=== PATIENT | female | born 1930 | race Caucasian/White ===

== ENCOUNTER 2017-07-22 00:27 | Inpatient (IN) | payer MEDICARE ==
[~2017-07-22] VITALS: Wt 68.2 kg
[~2017-07-22 00:27] MED LIST: ACCUPRIL10 M1 PO; ACETAMINOPHEN W1 TA6 PO; ACIDOPHILUS PO; AMBIEN 10MG10 MG PO; AMBIEN10 MG PO; BACTRIM DS 8001 TAB PO; CIPRO 500MG TA500 MG PO; CLEOCIN HC150 MG/CAP; COUMADIN 1MG1 MG/TAB PO; COUMADIN 3MG3 MG/TAB PO; COUMADIN1 MG PO; DITROPAN 5MG TAB5 MG PO; DYRENIUM 50MG C50 MG PO; FEROSUL325 MG PO; FERROUS SULFATE65 MG PO; FOLIC ACID 40400 MCG PO; HCTZ/TRIAMTEREN1 TA1 PO; LEVOTHYROXIN0.088 MG PO; LORTAB 7.5/5001 TAB PO; MACROBID 1100 MG/CAP PO; MACRODANTIN100 PO; MAXZIDE 50 MG-71 TAB PO; MIRTAZAPINE45 MG PO; NORCO 325 MG-7.1 TAB PO; NYSTATIN1 POW; OXYBUTYNIN5 MG PO; PEPCID 20MG TAB20 MG PO; PRAVACHOL 40MG40 MG PO; PRILOSEC 20MG20 MG PO; PRILOSEC10 MG PO; PROBIOTIC FORMU1 CAP PO; QUINAPRIL10 M1 PO; REMERON45 MG PO; SYNTHROID0.088 MG/T PO; TOPROL XL 50MG50 MG PO; TOPROL XL50 MG PO; VITAMIN C PURE500 M1 PO; VITAMIN D 400400 IU PO; VITAMIN D NATU400 IU PO; VITAMIN D3400 IU PO; ZOCOR40 MG PO; [UNRECOGNIZED DRUG - OTHER]; [UNRECOGNIZED DRUG - REMARK]
[2017-07-22 00:37] LABS: BASO % 0.2 % (0.0-2.0); GRAN # 11.3 (1.4-6.5); GRAN % 83.7 % (42.2-75.2); HEMATOCRIT 39.8 % (37.0-47.0); HEMOGLOBIN 13.7 g/dl (12.5-16.0); LYMPH # 1.4 (1.2-3.4); MEAN CELL VOLUME 92 fl (80.0-100.0); MEAN CORPUSCULAR HEMOGLOBIN 32 pg (27.0-31.0); MEAN CORPUSCULAR HGB CONC 34 g/dl (33.0-37.0); MEAN PLATELET VOLUME 8.3 fl (7.4-10.4); MONO # 0.7 (0.1-0.6); MONO % 5.4 % (1.7-9.3); PLATELET COUNT 180 K/mm3 (130-400); RED BLOOD COUNT 4.34 M/mm3 (4.10-5.30)
[2017-07-22] MEDS ORDERED: DIOVAN 160MG160 MG PO (00:43)
[2017-07-22 00:47] LABS: ALBUMIN 4.3 gm/dL (3.5-5.0); BILIRUBIN,TOTAL 1.2 mg/dL (0.0-1.0); CALCIUM 9.2 mg/dL (8.4-10.2); CREATININE, serum 0.92 mg/dL (0.52-1.25); POTASSIUM 3.7 mmol/L (3.4-5.0); TOTAL PROTEIN 7.8 gm/dL (6.4-8.2)
[2017-07-22 00:52] LABS: ARTERIAL BLD GAS O2 SATURATION 93.9 % (92-100); ARTERIAL BLD GAS TCO2 CT 26.7; ARTERIAL BLOOD GAS BASE EXCESS 2.6 (-2-2); ARTERIAL BLOOD GAS HCO3 25.6 meq/L (22-26); ARTERIAL BLOOD GAS PCO2 34.6 mmHg (35-45); ARTERIAL BLOOD GAS PO2 66.3 mmHg (80-100); ARTERIAL BLOOD GAS pH 7.49 (7.35-7.45)
[2017-07-22] MEDS ORDERED: MYRBETR50MG PO (00:56)
[2017-07-22] MEDS ORDERED: B-121000 MCG PO (00:57)
[2017-07-22 01:01] LABS: AMORPHOUS CRYSTAL Present /uL; PH 6 (5-8); SQUAMOUS EPITHELIAL None Seen /hpf; URINE APPEARANCE Hazy; URINE BACTERIA None Seen /hpf; URINE BILIRUBIN Negative (NEGATIVE); URINE BLOOD 1+ (NEGATIVE); URINE COLOR Yellow; URINE GLUCOSE Negative (NEGATIVE); URINE KETONE Negative (NEGATIVE); URINE LEUKOCYTE ESTERASE Negative (NEGATIVE); URINE NITRATE Negative (NEGATIVE); URINE PROTEIN(semi-quant) 2+ (NEGATIVE); URINE UROBILINOGEN Negative (NEGATIVE)
[2017-07-22] MEDS ORDERED: NEURONTIN100 MG/CAP PO (01:01)
[2017-07-22] MEDS ORDERED: ZYRTEC 10MG10 MG PO (01:02)
[2017-07-22 01:03] LABS: COLLECTION METHOD CATHETER
[2017-07-22] MEDS ORDERED: MUCINEX 60600 MG/TA1 PO (01:03)
[2017-07-22] MEDS ORDERED: TYLENOL 325MG325 MG PO (12:05)
[2017-07-22 12:57] VITALS: BP 137/66; PULSE 91; TEMP 98.2
[2017-07-22 13:52] LABS: INR 2.8 (0.8-3.0); PROTHROMBIN TIME 32.9 SECONDS (9.7-12.8)
[2017-07-22 16:15] VITALS: BP 144/68; PULSE 94; TEMP 97.9
[2017-07-22 19:45] VITALS: BP 150/78; PULSE 105; TEMP 98.4
[2017-07-22 23:53] VITALS: BP 142/65; PULSE 96; TEMP 98.1
[2017-07-23 03:21] VITALS: BP 148/70; PULSE 92; TEMP 98.3
[2017-07-23 06:56] LABS: HEMOGLOBIN 12.2 g/dl (12.5-16.0); MEAN CELL VOLUME 91 fl (80.0-100.0); MEAN CORPUSCULAR HEMOGLOBIN 32 pg (27.0-31.0); MEAN CORPUSCULAR HGB CONC 35 g/dl (33.0-37.0); MEAN PLATELET VOLUME 8.9 fl (7.4-10.4); PLATELET COUNT 157 K/mm3 (130-400); RED BLOOD COUNT 3.86 M/mm3 (4.10-5.30); REDCELL DISTRIBUTION WIDTH-CV 12.1 % (11.5-14.5)
[2017-07-23 07:03] LABS: CALCIUM 8.5 mg/dL (8.4-10.2); CREATININE, serum 0.71 mg/dL (0.52-1.25)
[2017-07-23 07:12] LABS: HEMATOCRIT 35.2 % (37.0-47.0)
[2017-07-23 07:54] VITALS: BP 139/59; PULSE 87; TEMP 98
[2017-07-23 09:36] LABS: BAND 19 % (0-10); LYMPHOCYTE 17 % (20.0-51.0); NEUTROPHILS 62 % (42.0-75.2); PLATELET ESTIMATE NORMAL (NORMAL)
[2017-07-23 12:00] VITALS: BP 143/75; PULSE 98; TEMP 98.2
[2017-07-23 15:34] VITALS: BP 135/69; PULSE 103; TEMP 98.6
[2017-07-23 20:39] VITALS: BP 123/56; PULSE 98; TEMP 97.7
[2017-07-23 23:51] VITALS: BP 100/71; PULSE 85; TEMP 98.5
[2017-07-24 04:47] VITALS: BP 130/56; PULSE 77; TEMP 98.8
[2017-07-24 06:56] LABS: MEAN CELL VOLUME 92 fl (80.0-100.0); MEAN CORPUSCULAR HEMOGLOBIN 31 pg (27.0-31.0); MEAN CORPUSCULAR HGB CONC 34 g/dl (33.0-37.0); PLATELET COUNT 156 K/mm3 (130-400); RED BLOOD COUNT 3.82 M/mm3 (4.10-5.30); REDCELL DISTRIBUTION WIDTH-CV 12.2 % (11.5-14.5)
[2017-07-24 07:08] LABS: HEMATOCRIT 35.3 % (37.0-47.0)
[2017-07-24 07:17] LABS: CALCIUM 8.1 mg/dL (8.4-10.2); CREATININE, serum 0.86 mg/dL (0.52-1.25); MAGNESIUM 1.1 mg/dL (1.6-2.3); POTASSIUM 4.2 mmol/L (3.4-5.0)
[2017-07-24 07:19] LABS: INR 2.8 (0.8-3.0); PROTHROMBIN TIME 33.4 SECONDS (9.7-12.8)
[2017-07-24 08:00] VITALS: BP 120/47; PULSE 75; TEMP 98
[2017-07-24 12:05] VITALS: BP 114/52; PULSE 74; TEMP 98.1
[2017-07-24 13:50] LABS: BAND 9 % (0-10); LYMPHOCYTE 7 % (20.0-51.0); NEUTROPHILS 82 % (42.0-75.2); PLATELET ESTIMATE NORMAL (NORMAL)
[2017-07-24 14:47] VITALS: BP 123/51; PULSE 86; TEMP 98.2
[2017-07-25] VITALS (7 sets, daily range): BP systolic 129–166; BP diastolic 60–82; PULSE 72–86; TEMP 97.9–98.6
[2017-07-25 06:52] LABS: BASO # 0.1 (0.0-0.2); BASO % 0.6 % (0.0-2.0); EOS # 0.2 (0.0-0.7); EOS % 1.6 % (0-4.0); GRAN # 6.5 (1.4-6.5); GRAN % 69.9 % (42.2-75.2); LYMPH # 1.6 (1.2-3.4); LYMPH % 17.6 % (20.0-51.0); MEAN CELL VOLUME 93 fl (80.0-100.0); MEAN CORPUSCULAR HGB CONC 35 g/dl (33.0-37.0); MEAN PLATELET VOLUME 9.1 fl (7.4-10.4); MONO # 0.9 (0.1-0.6); MONO % 9.7 % (1.7-9.3); PLATELET COUNT 167 K/mm3 (130-400); RED BLOOD COUNT 3.47 M/mm3 (4.10-5.30); REDCELL DISTRIBUTION WIDTH-CV 12.4 % (11.5-14.5)
[2017-07-25 06:59] LABS: CALCIUM 7.7 mg/dL (8.4-10.2); CREATININE, serum 0.9 mg/dL (0.52-1.25); MAGNESIUM 1.7 mg/dL (1.6-2.3); PHOSPHOROUS 2.6 mg/dL (2.5-4.5); POTASSIUM 3.4 mmol/L (3.4-5.0)
[2017-07-25 07:01] LABS: PROTHROMBIN TIME 47.4 SECONDS (9.7-12.8)
[2017-07-25 07:03] LABS: HEMATOCRIT 32.1 % (37.0-47.0); HEMOGLOBIN 11.1 g/dl (12.5-16.0); MEAN CORPUSCULAR HEMOGLOBIN 32 pg (27.0-31.0)
[2017-07-26 04:05] VITALS: BP 167/53; PULSE 67
[2017-07-26 06:04] LABS: MEAN CELL VOLUME 92 fl (80.0-100.0); MEAN CORPUSCULAR HGB CONC 35 g/dl (33.0-37.0); MEAN PLATELET VOLUME 8.7 fl (7.4-10.4); PLATELET COUNT 183 K/mm3 (130-400); RED BLOOD COUNT 3.53 M/mm3 (4.10-5.30); REDCELL DISTRIBUTION WIDTH-CV 12.3 % (11.5-14.5)
[2017-07-26 06:05] LABS: HEMATOCRIT 32.4 % (37.0-47.0); HEMOGLOBIN 11.3 g/dl (12.5-16.0); MEAN CORPUSCULAR HEMOGLOBIN 32 pg (27.0-31.0)
[2017-07-26 06:08] LABS: INR 4.7 (0.8-3.0)
[2017-07-26 06:10] LABS: PROTHROMBIN TIME 56.1 SECONDS (9.7-12.8)
[2017-07-26 06:27] LABS: CALCIUM 7.9 mg/dL (8.4-10.2); CREATININE, serum 0.85 mg/dL (0.52-1.25); MAGNESIUM 1.8 mg/dL (1.6-2.3); PHOSPHOROUS 2.7 mg/dL (2.5-4.5); POTASSIUM 3.5 mmol/L (3.4-5.0)
[2017-07-26 06:46] LABS: BAND 17 % (0-10); EOSINOPHIL 1 % (0-4); LYMPHOCYTE 24 % (20.0-51.0); NEUTROPHILS 56 % (42.0-75.2)
[2017-07-26 06:47] LABS: PLATELET ESTIMATE NORMAL (NORMAL)
[2017-07-26 08:45] VITALS: BP 174/79; PULSE 65; TEMP 98.5
[2017-07-26] MEDS ORDERED: VANCOCIN H250 MG/CAP PO ×2 (10:16→10:37)
[2017-07-26] MEDS ORDERED: CLEOCIN HCL300 MG PO ×2 (10:19→10:31)
[2017-07-26] MEDS ORDERED: IPRATROPIUM BROM3 M1 IH (10:19)
[2017-07-26] MEDS ORDERED: PROBIOTIC GOLD1 EACH PO (10:20)
[2017-07-26 11:13] VITALS: BP 174/79; PULSE 65; TEMP 98.5
[2017-07-26 11:28] VITALS: BP 148/70; PULSE 76; TEMP 98.5
== END 2017-07-26 12:30 | DRG 872 ==
LOC: COL.ER 00:27 → MEDICAL 02:07
PROVIDERS: Family Medicine; Internal Medicine; Physician Assistant
DX: A41.9 Sepsis, unspecified organism (principal); E87.1 Hypo-osmolality and hyponatremia; A04.72 Enterocolitis due to Clostridium difficile, not specified as recurrent; J47.0 Bronchiectasis with acute lower respiratory infection; J84.10 Pulmonary fibrosis, unspecified; I48.91 Unspecified atrial fibrillation; E03.9 Hypothyroidism, unspecified; K21.9 Gastro-esophageal reflux disease without esophagitis; E87.6 Hypokalemia; I10 Essential (primary) hypertension; E87.70 Fluid overload, unspecified; K04.7 Periapical abscess without sinus; Z79.01 Long term (current) use of anticoagulants; Z86.718 Personal history of other venous thrombosis and embolism
CPT/HCPCS: 99222-AI; 99233-AI; 99239; J0696; J1940; J1956; J3475; J7030; Q9967

== ENCOUNTER → 2017-07-29 | Outpatient (REF) ==
[~2017-07-29] MED LIST changes: +B-121000 MCG PO; +CLEOCIN HCL300 MG PO; +DIOVAN 160MG160 MG PO; +IPRATROPIUM BROM3 M1 IH; +MUCINEX 60600 MG/TA1 PO; +MYRBETR50MG PO; +NEURONTIN100 MG/CAP PO; +PROBIOTIC GOLD1 EACH PO; +TYLENOL 325MG325 MG PO; +VANCOCIN H250 MG/CAP PO; +ZYRTEC 10MG10 MG PO
[2017-07-29 15:56] LABS: INR 1.6 (0.8-3.0); PROTHROMBIN TIME 18.7 SECONDS (9.7-12.8)
== END ==
LOC: ZCOL.LAB 15:46
PROVIDERS: Family Medicine
DX: I48.91 Unspecified atrial fibrillation (principal)

== ENCOUNTER → 2017-09-11 | Outpatient (REF) ==
[~2017-09-11] MED LIST changes: +COUMADIN4 MG PO; +FLAGYL500 MG PO; +K-TAB20 PO; +MAG-OX 400400 MG/TAB PO; +PROBIOTIC ACID1 EAC3 PO; +VANCOCIN H125 MG/CAP PO
== END ==
LOC: ZCOL.LAB 18:05
DX: E83.42 Hypomagnesemia (principal); E87.5 Hyperkalemia

== ENCOUNTER → 2018-05-31 | Outpatient (REF) | LOC: ZLAB.WCH 16:28 | DX: Z01.89 Encounter for other specified special examinations (principal) ==